=== PATIENT | female | born 1950 ===

== ENCOUNTER 2024-03-20 12:30 | Day surgery (SDC) | payer MEDICARE, BC ==
[~2024-03-20] VITALS: Ht 157.5 cm; Wt 73.0 kg
[~2024-03-20 12:30] MED LIST: Balanced Salt Epinephrine Irrigation Solution 500 mL IR SCH; Dexamethasone Sod Phos 10 MG/ML 1ML VIAL ONE; Lidocaine HCl/Pf 1% 5 ML VIAL XX SCH; Moxifloxacin HCL 0.5 MG/0.1 ML 0.4MLSYR LEFTEYE SCH; NS 500 ML IV ONE; PHENYLEPHRINE\\TROPICAMIDE\\TETRACAINE OPHTHALMIC DILATING SOLN LEFTEYE PRN; Povidone-Iodine 450 DROP/30 ML Solution LEFTEYE SCH; Povidone-Iodine 450 DROP/30 ML Solution ONE; Triamcinolone Inj Susp 40 MG / ML 1ML Vial INJ SCH; Triamcinolone Inj Susp 40 MG / ML 1ML Vial ONE
[2024-03-20] MEDS ORDERED: Ondansetron HCl 2 MG / ML 2ML Vial ONE (13:34)
[2024-03-20] MEDS ORDERED: FentaNYL Citrate 50 MCG/ML 2 ML Injection ONE (13:34)
[2024-03-20] MEDS ORDERED: Midazolam HCl 1MG / ML 2ML Vial ONE ×2 (13:34→14:25)
[2024-03-20] MEDS ORDERED: HYDROCODONE-AC1 EAC7 (13:51)
[2024-03-20] MEDS ORDERED: TEMAZEPAM1511 (13:53)
[2024-03-20] MEDS ORDERED: Methocarbamol750 MG (13:53)
[2024-03-20] MEDS ORDERED: OMEP20ER (13:54)
[2024-03-20] MEDS ORDERED: ATEN50 (13:54)
[2024-03-20] MEDS ORDERED: ALLOPURINOL200 MG (13:54)
[2024-03-20] MEDS ORDERED: TRIA50 (13:54)
[2024-03-20] MEDS ORDERED: [UNRECOGNIZED DRUG - SUPPLY] (13:55)
[2024-03-20] MEDS ORDERED: POTASSIUM CL ER 10 M (13:55)
[2024-03-20] MEDS ORDERED: ERGO400 (13:56)
[2024-03-20] MEDS ORDERED: COLCRYS0.6 M1 (13:57)
[2024-03-20] MEDS ORDERED: NS 1,000 ML IV ONE (14:10)
[2024-03-20] MEDS ORDERED: Tetracaine HCl 0.5% Opth Soln 15 ml LEFTEYE ONE (14:17)
--- NOTE | 2024-03-20 15:18 | NUR ---
03/20/24 Mateo Tate ASSESSMENTS OCCURRED IN SDU. PT DID NOT GO TO PACU.
[2024-03-20 15:20] VITALS: BP 134/74
== END 2024-03-20 15:03 | disposition home or self-care (01) ==
LOC: ORSCSDS 12:30
PROVIDERS: Ophthalmology
PROC: 08RK3JZ Replacement of Left Lens with Synthetic Substitute, Percutaneous Approach (ICD-10-PCS; principal; 2024-03-20 14:00)
DX: H25.813 Combined forms of age-related cataract, bilateral (principal); J44.9 Chronic obstructive pulmonary disease, unspecified; I10 Essential (primary) hypertension; K21.9 Gastro-esophageal reflux disease without esophagitis; Z79.899 Other long term (current) drug therapy
CPT/HCPCS: J1100; J2250; J2405; J3010; J3301; J7040; V2632

== ENCOUNTER 2024-03-25 11:23 | Day surgery (SDC) | payer MEDICARE, BC ==
[~2024-03-25] VITALS: Ht 157.5 cm; Wt 72.9 kg
[~2024-03-25 11:23] MED LIST changes: +ALLOPURINOL200 MG; +ATEN50; +COLCRYS0.6 M1; -Dexamethasone Sod Phos 10 MG/ML 1ML VIAL ONE; +ERGO400; +HYDROCODONE-AC1 EAC7; +Methocarbamol750 MG; -Moxifloxacin HCL 0.5 MG/0.1 ML 0.4MLSYR LEFTEYE SCH; +Moxifloxacin HCL 0.5 MG/0.1 ML 0.4MLSYR RIGHTEYE SCH; +OMEP20ER; -PHENYLEPHRINE\\TROPICAMIDE\\TETRACAINE OPHTHALMIC DILATING SOLN LEFTEYE PRN; +PHENYLEPHRINE\\TROPICAMIDE\\TETRACAINE OPHTHALMIC DILATING SOLN RIGHTEYE PRN; +POTASSIUM CL ER 10 M; -Povidone-Iodine 450 DROP/30 ML Solution LEFTEYE SCH; -Povidone-Iodine 450 DROP/30 ML Solution ONE; +Povidone-Iodine 450 DROP/30 ML Solution RIGHTEYE SCH; +TEMAZEPAM1511; +TRIA50; +[UNRECOGNIZED DRUG - SUPPLY]
[2024-03-25] MEDS ORDERED: Midazolam HCl 1MG / ML 2ML Vial ONE (11:28)
[2024-03-25] MEDS ORDERED: FentaNYL Citrate 50 MCG/ML 2 ML Injection ONE (11:28)
[2024-03-25] MEDS ORDERED: NS 500 ML IV ONE (11:53)
--- NOTE | 2024-03-25 11:54 | NUR ---
03/25/24 1154 Garret Marr CALL LIGHT WITHIN REACH. TETRACAINE IN RIGHT EYE AT 1146 AND PLEDGETT IN AT 1148
[2024-03-25] MEDS ORDERED: Tetracaine HCl 0.5% Opth Soln 15 ml RIGHTEYE ONE (12:31)
[2024-03-25 12:56] VITALS: BP 133/82
== END 2024-03-25 13:20 | disposition home or self-care (01) ==
LOC: ORSCSDS 11:23
PROVIDERS: Ophthalmology
PROC: 08RJ3JZ Replacement of Right Lens with Synthetic Substitute, Percutaneous Approach (ICD-10-PCS; principal; 2024-03-25 12:30)
DX: H25.811 Combined forms of age-related cataract, right eye (principal); Z96.1 Presence of intraocular lens; I10 Essential (primary) hypertension; K21.9 Gastro-esophageal reflux disease without esophagitis; E66.9 Obesity, unspecified; Z68.29 Body mass index [BMI] 29.0-29.9, adult; Z79.899 Other long term (current) drug therapy; F17.210 Nicotine dependence, cigarettes, uncomplicated
CPT/HCPCS: J2250; J3010; J3301; J7040; V2632